=== PATIENT | male | born 1950 | race Caucasian/White ===

== ENCOUNTER 2016-11-24 00:16 | Day surgery (SDC) | payer OTHER ==
[~2016-11-24] VITALS: Ht 177.8 cm; Wt 120.9 kg
[2016-11-24] VITALS (12 sets, daily range): BP systolic 124–153; BP diastolic 50–83; PULSE 44–56; RESP 12–20; O2SAT 93–98
[~2016-11-24 00:16] MED LIST: GABA600T2 PO; GLIP10TA10 PO; INSLIS SUBQ; INSU100I13 SUBQ; LISI40TA PO; LOVA10TA PO; METF1000 PO; NITR0.4T SL; OMEG1CAP56 PO; OMEP20TA86 PO; PROP20TA5 PO; ZOLP5TAB6 PO
[2016-11-24 10:55] LABS: BASOPHILS % (AUTO) 0.4 % (0-3); EOSINOPHILS % (AUTO) 1.9 % (0-5); MONOCYTES % (AUTO) 12.2 % (4-12); Mean Corpuscular Hemoglobin 29.4 pg (27.0-35.0); Mean Corpuscular Volume 90.3 fL (81-100); NEUTROPHILS % (AUTO) 46.9 % (40-74); Platelet Count 204 bil/L (150-400)
[2016-11-24] MEDS ORDERED: Heparin 10,000 Unit/1,000 mL NS Premix IV ONE ×2 (11:02→13:01)
[2016-11-24] MEDS ORDERED: Heparin 1,000 Units/500 mL NS Premix IV ONE ×2 (11:02→13:00)
[2016-11-24] MEDS ORDERED: Nitroglycerin 50,000 mcg/250 mL D5W Premix IV ONE ×3 (11:04→13:02)
[2016-11-24] MEDS ORDERED: ZOLP10TA5 PO (11:08)
[2016-11-24] MEDS ORDERED: ASPI-973 PO (11:09)
[2016-11-24] MEDS ORDERED: CYAN25008 SL (11:11)
[2016-11-24] MEDS ORDERED: MULT-666 PO (11:11)
[2016-11-24] MEDS ORDERED: CHOL10008 PO (11:11)
--- NOTE | 2016-11-24 11:22 | NUR ---
[facility] ADMIT 65 YR OLD MALE ADMITTED TO [facility] FOR HEART CATH AND POSSIBLE PCI TODAY AT 0930. IVS STARTED, LABS SENT, AND CONSENT IS SIGNED. SEE ASSESSMENT FLOW FOR DETAILS.
[2016-11-24] MEDS ORDERED: Heparin 1,000 Unit/mL 10 mL Inj ONE (13:00)
[2016-11-24] MEDS ORDERED: fentaNYL-PF 50 mCg/mL 2 mL Inj ONE (13:01)
[2016-11-24] MEDS ORDERED: Phenylephrine/NS-PF 100 mCg/mL 5 mL Syringe IVPUSH ONE (13:07)
--- NOTE | 2016-11-24 19:32 | NUR ---
[facility] DISCHARGE PT COMPLETED BEDREST AND RIGHT GROIN REMAINED SOFT, NON TENDER, WITH NO BLEEDING OR HEMATOMA NOTED. RIGHT DP PER DOPPLER. HE IS TAKING PO FLUIDS AND MEAL WITHOUT DIFFICULTY AND FAMILY IS AT BEDSIDE. DISCHARGE INSTRUCTIONS INCLUDING MEDICATIONS, F/U, AND POST SEDATION AND CARDIAC CATHETERIZATION INSTRUCTIONS WERE REVIEWED AND PT AND VERBALIZED UNDERSTANDING. HE AMBULATED IN [place] AND USED THE BATHROOM AND RIGHT GROIN REMAINED UNCHANGED. PT WAS DISCHARGED IN STABLE CONDITION AT 1920 WITH FAMILY.
--- NOTE | 2016-11-26 10:43 | CS94 ---
[address] [address] DIAGNOSTIC CARDIAC CATHETERIZATION PATIENT: JAYDEN HARDING : 1950 MR#: [id number] ADMIT: 11/24/2016 JOB ID: [id number] SERVICE DATE: 11/24/2016 PROCEDURES PERFORMED: 1. Left heart catheterization. 2. [place] coronary angiography. 3. Graft angiography. INDICATIONS: A 65-year-old man with recent problems with increased shortness of breath, known coronary artery disease as well as some chest discomfort and an abnormal EKG presents for cardiac catheterization. DESCRIPTION OF PROCEDURE: Informed consent was obtained. The patient was brought to the cath laboratory. The bilateral groins were prepped in the usual sterile fashion. The area of the right femoral artery was anesthetized with lidocaine. Using micropuncture technique and modified Seldinger technique, access was obtained. A 5-Japanese sheath was advanced. Next a 5-Japanese JL-3.5 was advanced from a wire used to cannulate the left coronary artery, angiography was obtained. This catheter was removed and a 5-Japanese JR-4 catheter was used to cannulate the [place] right coronary artery. This was then used to cannulate the graft to the left ventricular extension branch. It was also used to cannulate graft to the diagonal branch. Also used to cannulate the graft to the obtuse marginal branch. This JR-4 catheter was then brought around and was directed into the subclavian artery where it was exchanged over a wire for a 5-Japanese STEFAN catheter was used to cannulate the MARIE to the LAD. After angiography was performed, the catheter was removed. A pigtail catheter was advanced to the left ventricle under fluoroscopic guidance. Left ventricular pressures were obtained and, following pullback, aortic pressures were obtained. The case was ended and angiography of the right femoral access site was reviewed prior to achieving hemostasis with a StarClose device. There were no complications. FINDINGS: CORONARIES: The left main is severely diseased throughout. There is only a septal branch appreciated in the [place] left coronary system. Right coronary artery: This vessel has very stable findings in the proximal and mid conduits and distal conduits segments. Unfortunately PDA is now occluded without evidence of filling distally. This vessel appears quite small in caliber and based upon this and the fact that it is unclear when this occlusion occurred and no intervention was performed. The saphenous vein graft to obtuse marginal branch. This vessel is widely patent. Has reasonable flow in it. There are some mild stenoses of one of the [place] branches that is being filled by this. However, this would not be an interventional target. Vein graft to the diagonal branches is widely patent. There is no stenosis of the graft and no post anastomotic stenosis. Vein graft to the extension branches is widely patent. There is no evidence for pre-anastomotic or post-anastomotic stenoses. MARIE to left anterior descending artery: This vessel is widely patent. The LAD distal to the graft appears relatively small in caliber. There is no obstructive lesions appreciated. Left ventricular pressure (post contrast) 25 mmHg. Some variation with respirations suggesting the possible presence of obstructive sleep apnea. No gradient on pullback. IMPRESSION: 1. Widely patent grafts in this patient with known coronary artery disease. 2. Severe left coronary system disease. 3. The right coronary artery is stable in the previous areas of intervention. However, the PDA is now occluded. Unfortunately this is a small caliber vessel, and as it is completely occluded. As the time of occlusion is not known, it would not be a good interventional candidate for interventional procedure. 4. Elevated end-diastolic pressure (post contrast) with some variation suggesting the possibility of sleep apnea. MTDD
== END 2016-11-24 23:59 | disposition home or self-care (01) ==
LOC: SPI 00:16
PROVIDERS: ATTEND Internal Medicine
DX: I25.10 Atherosclerotic heart disease of native coronary artery without angina pectoris (principal); I25.82 Chronic total occlusion of coronary artery; E11.9 Type 2 diabetes mellitus without complications; I10 Essential (primary) hypertension; Z95.1 Presence of aortocoronary bypass graft; Z79.4 Long term (current) use of insulin; Z79.02 Long term (current) use of antithrombotics/antiplatelets; Z79.84 Long term (current) use of oral hypoglycemic drugs
CPT/HCPCS: 36415; 80048; 85025; 93005; 93459; 99152; 99153; C1760; C1769; C1894; J1200; J1644; J2250; J3010; J7030; Q9967

== ENCOUNTER 2016-12-15 21:27 | Emergency (ER) | payer OTHER ==
[~2016-12-15] VITALS: Ht 180.3 cm; Wt 120.5 kg
[~2016-12-15 21:27] MED LIST changes: +ASPI-973 PO; +CHOL10008 PO; +CYAN25008 SL; +MULT-666 PO
[2016-12-15 21:31] VITALS: BP 114/78; PULSE 96; RESP 28; O2SAT 98
[2016-12-16 00:02] LABS: BASOPHILS % (AUTO) 0.2 % (0-3); EOSINOPHILS % (AUTO) 0.7 % (0-5); MONOCYTES % (AUTO) 12.2 % (4-12); Mean Corpuscular Hemoglobin 30.1 pg (27.0-35.0); Mean Corpuscular Volume 88.3 fL (81-100); NEUTROPHILS % (AUTO) 63.9 % (40-74); Platelet Count 228 bil/L (150-400)
--- NOTE | 2016-12-16 00:28 | ED.REPORT ---
HPI-Extremity Problem Lower Date of Service Dec 16, 2016 ED Provider: Carroll Lantigua MD The pt is a 66 y/o male with a hx of coronary artery disease, HTN, DM, hyperlipidemia, and CABG x4 who presents to the ED complaining of left heel pain around a surgical wound, onset today. He saw a polisher apprentice today for a puncture wound to the heel, who removed a piece of wire and drained out some pus. He was prescribed amoxicillin and pain medications. The pt took 2.5mg hydrocodone and 1.5 mg morphine but it does not seem to be helping. There are no other complaints at this time. Nursing Notes Stated Complaint: LEFT HEEL PAIN Chief Complaint: Extremity Trauma Nursing Notes Reviewed: Yes Allergies: Coded Allergies: zinc (Verified Allergy, Unknown, 11/24/16) Scheduled Aspirin (Aspirin) 81 Mg Tablet 81 MG PO DAILY Cholecalciferol (Vitamin D3) (Vitamin D3) 1,000 Unit Tab.chew 1,000 UNIT PO DAILY Cyanocobalamin (Vitamin B-12) (B-12) 2,500 Mcg Lozenge 2,500 MCG SL DAILY Gabapentin (Gabapentin) 600 Mg Tablet 600 MG PO TID Glipizide (Glipizide) 10 Mg Tablet 10 MG PO BID Insulin Glargine (Lantus U100 Solostar Insulin Pen) 100 Unit/1 Ml Insuln.pen 45- 75 UNIT SUBQ QPM-INSULIN Insulin Human Lispro (HumaLOG U100 Insulin Vial) 100 Unit/Ml Unit UNIT SUBQ SS Blood Sugar Lispro Correction <151 0 units 151-175 1 unit 176-200 2 units 201-225 3 units 226-250 4 units 251-275 5 units 276-300 6 units 301-325 7 units 326-350 8 units 351-375 9 units 376-400 10 units >400 12 units Check blood sugars before meals and at bedtime. Use correction factor only before meals. Lisinopril (Lisinopril) 40 Mg Tablet 20 MG PO DAILY Lovastatin (Lovastatin) 10 Mg Tablet 10 MG PO HS Metformin (Glucophage) 1,000 Mg Tablet 1,000 MG PO BID Multivitamin (Once Daily) 1 Each Tablet 1 EACH PO DAILY Nitroglycerin SL (Nitrostat) 0.4 Mg Tab.subl 0.4 MG SL Q5MIN Omeprazole (Omeprazole) 20 Mg Tablet.dr 20 MG PO DAILY Propranolol HCl (Propranolol HCl) 20 Mg Tablet 20 MG PO BID Scheduled PRN Zolpidem (Zolpidem) 5 Mg Tablet 5 MG PO HS PRN PRN For Insomnia oxyCODONE-Acetaminophen 7.5-325 mg (oxyCODONE-Acetaminophen 7.5-325 mg) 1 Each Tablet 1-2 TAB PO Q4H PRN PRN For Pain Miscellaneous Medications Jena-3 Fatty Acids/Fish Oil (Jena 3 1,000 mg Softgel) 1 Each Capsule 1 EACH PO General Time Seen by MD: 00:26 Chief Complaint Foot injury left Hx Obtained From: Patient Arrived By: Walk-in Onset Occurred: 5 - 8 hours ago Symptom Duration: Since onset Location: : Foot left Quality: Painful Severity: Current: Severe Severity: Maximum: Severe Recent Healthcare: Recent doctor visit Similar Sx Previous: No Past Medical History Past Medical History Reports: Coronary artery disease, Diabetes mellitus, Hyperlipidemia, Hypertension Past Surgical History Vastectomy 2x pancreatic stents Bypass in 2008 Reports: CABG, Cholecystectomy Smoking History Never Smoker Social History Other Social History: Good social support, Local resident Ambulatory Status Independent Review of Systems Musculoskeletal: Reports: Extremity pain (left heel) Complete sys rev & neg: except as marked. Physical Exam Initial Vital Signs Vital Signs (First) Date Time Temp Pulse Resp B/P Pulse Ox O2 Delivery O2 Flow Rate FiO2 12/15/16 21:31 36.8 96 28 114/78 98 Room Air Initial VS: Reviewed Head / Eyes: Atraumatic, Normocephalic Neck: Supple, Non-tender, Full range of motion Respiratory: No respiratory distress Cardiovascular: Intact distal pulses Abdomen / GI: No guarding Upper Extremities: Vascular intact, Neuro intact, No swelling, No tenderness Skin: Warm, Dry, No cyanosis Neurologic: Alert, Oriented, Nonfocal Lower Extremity / Pelvis / MS: Atraumatic, Full range of motion, No swelling, Non-tender, No erythema, No deformity, Neurologic intact, Vascular intact Ankle / Foot: Atraumatic, No swelling, No erythema, Neurologic intact, Vascular intact 1cm surgical, open wound with drain coming out. No redness or swelling of left foot. Interpretation & Diagnostics Lab Results Interpretation Result Diagram: 12/15/16 2345 12/15/16 2345 Test 12/15/16 23:45 White Blood Count 8.2th/mm3 (3.8-10.1) Red Blood Count 4.79mil/mm3 (4.40-5.80) Hemoglobin 14.4g/dL (13.8-17.2) Hematocrit 42.3% (41.0-50.0) Mean Corpuscular Volume 88.3fL (81-100) Mean Corpuscular Hemoglobin 30.1pg (27.0-35.0) Mean Corpuscular Hemoglobin Concent 34.0% (32.0-37.0) Red Cell Distribution Width 12.9% (12.3-15.4) Platelet Count 228bil/L (150-400) Neutrophils (%) (Auto) 63.9% (40-74) Lymphocytes (%) (Auto) 22.8% (14-46) Monocytes (%) (Auto) 12.2% (4-12) Eosinophils (%) (Auto) 0.7% (0-5) Basophils (%) (Auto) 0.2% (0-3) Sodium Level 134mEq/L (134-144) Potassium Level 4.4mEq/L (3.5-5.2) Chloride Level 96mEq/L (97-108) Carbon Dioxide Level 22mmol/L (18-29) Blood Urea Nitrogen 21mg/dL (8-27) Creatinine 0.92mg/dL (0.76-1.27) Estimat Glomerular Filtration Rate 87mL/min (>59) Glucose Level 230mg/dL (60-99) Lactic Acid Level 2.1mmol/L (0.4-2.0) Calcium Level 9.2mg/dL (8.5-10.1) Total Bilirubin 0.6mg/dL (0.0-1.2) Aspartate Amino Transf (AST/SGOT) 29U/L (0-50) Alanine Aminotransferase (ALT/SGPT) 22U/L (0-44) Alkaline Phosphatase 104U/L (25-160) Total Protein 7.2g/dL (6.4-8.4) Albumin 4.1g/dL (3.4-5.0) X-Ray Interpretation Xray Interpretation: No acute findings. X-Ray Ordered: Foot left Interpretation / Wet Read by: Wet read ED physician Re-Eval/Medical Decision Med Decision/Clinical Course 66-year-old increased pain in an operative site on his heel from today. No purulent drainage and otherwise appears well. Increases pain coverage from hydrocodone to oxycodone at 7.5-15 mg every 4 hours when necessary. Follow-up with podiatry already scheduled for tomorrow. Re-Evaluation/Progress : Time of Eval: 00:50 Re-Evaluation/Progress Note: Rechecked pt. Discussed lab results, imaging results, diagnosis and plan to discharge. Pt understands and agrees with the plan. F/U instruction and RTER warning given. All questions addressed. Counseled Regarding: Diagnosis, Lab results, Need for follow-up, When/why to return to ED Discharge & Departure Impression: Primary Impression: Postoperative pain of extremity Disposition: Home Discharge Condition All VS Reviewed: Yes Condition: Stable Additional Instructions: Continue your current antibiotics. Elevate the leg whenever possible to reduce the swelling and fluid pressure. Follow-up with podiatry as planned. Instead of hydrocodone, use Percocet two tablets every four hours as needed. Return if any immediate issues. Referrals: Tony Quezada MD (PCP) Scribe Attestation Portions of this note were transcribed by Kalen Briggs. I,, personally performed the history, physical exam and medical decision-making;I reviewed and confirmed the accuracy of the information in the transcribed note. Signed by Sharda Howard. 12/16/16 copies to: Tony Quezada MD, Christopher W MD Dec 16, 2016 00:28 Kalen Briggs Dec 16, 2016 00:41
[2016-12-16 00:34] VITALS: BP 134/75; PULSE 91; O2SAT 95
[2016-12-16] MEDS ORDERED: _oxyCODONE/APAP 5-325 mg Tablet PO PRN (00:40)
[2016-12-16] MEDS ORDERED: OXYC-465 PO (00:55)
[2016-12-16 01:38] VITALS: BP 150/84; PULSE 94; O2SAT 94
[2016-12-16 01:39] VITALS: BP 150/84; PULSE 94; RESP 28; O2SAT 94
--- NOTE | 2016-12-16 10:46 | DRSVH ---
PROCEDURE: X-RAY LEFT FOOT COMPLETE, MINIMUM THREE VIEWS ([id number]) INDICATIONS: left heel infection, possible FORIEGN BODY TECHNIQUE: 3 views of the foot were acquired. COMPARISON: None. FINDINGS: Bones: No fractures or dislocations. No suspicious bony lesions. Female spurring. Soft tissues: No tibiotalar joint effusion. Achilles tendon appears normal. Surgical clips within the soft tissues adjacent to the medial malleolus. IMPRESSION: No radiopaque soft tissue foreign bodies or acute bony injury. Dictated by: Adi Perkins [facility] Interpreted: Mitchell Stanford MD on 12/16/2016 at 8:56 Approved by: Mitchell Stanford M.D. on 12/16/2016 at 10:44
== END 2016-12-16 01:40 | disposition home or self-care (01) ==
LOC: SED 21:27
DX: G89.18 Other acute postprocedural pain (principal); Y83.8 Other surgical procedures as the cause of abnormal reaction of the patient, or of later complication, without mention of misadventure at the time of the procedure; I11.9 Hypertensive heart disease without heart failure; I25.10 Atherosclerotic heart disease of native coronary artery without angina pectoris; E11.59 Type 2 diabetes mellitus with other circulatory complications; E78.5 Hyperlipidemia, unspecified; Z95.1 Presence of aortocoronary bypass graft; Z79.82 Long term (current) use of aspirin; Z79.4 Long term (current) use of insulin; Z79.84 Long term (current) use of oral hypoglycemic drugs